=== PATIENT | female | born 1995 | race Caucasian/White ===

== ENCOUNTER 2019-04-14 16:52 | Emergency (ER) | payer BC ==
[~2019-04-14 16:52] MED LIST: BIRTH CONTROL; CIPRO500 MG PO; FLAGYL500 MG PO; LITHIUM CARBON600 MG; NAPROSYN500 MG PO; NOHOMEMEDICATIONS; PHENAZOPYRIDIN200 M2 PO; PROZAC10 MG; SEROQUEL XR150 MG PO; TRINATE TABLET1 TAB; ZOFRAN ODT4 MG PO
== END 2019-04-14 17:52 | disposition left against medical advice (07) ==
LOC: M.ERS 16:52
DX: Z53.21 Procedure and treatment not carried out due to patient leaving prior to being seen by health care provider (principal)

== ENCOUNTER 2019-10-07 12:22 | Emergency (ER) | payer BC ==
[~2019-10-07] VITALS: Ht 175.3 cm; Wt 59.0 kg
[2019-10-07] MEDS ORDERED: TYLENOL WITH CO1 TA1 PO (14:28)
[2019-10-07] MEDS ORDERED: DOXYCYCLINE 10100 MG PO (14:28)
[2019-10-07] MEDS ORDERED: ZANAFLEX4 MG PO (14:28)
[2019-10-07] MEDS ORDERED: IBUPROFEN 800800 M1 PO (14:28)
[2019-10-07 15:04] VITALS: BP 103/60
== END 2019-10-07 15:04 | disposition home or self-care (01) ==
LOC: M.ERS 12:22
DX: S06.0X0A Concussion without loss of consciousness, initial encounter (principal); S16.1XXA Strain of muscle, fascia and tendon at neck level, initial encounter; S91.302A Unspecified open wound, left foot, initial encounter; S50.02XA Contusion of left elbow, initial encounter; S40.211A Abrasion of right shoulder, initial encounter; F17.210 Nicotine dependence, cigarettes, uncomplicated; Y08.89XA Assault by other specified means, initial encounter; Y93.89 Activity, other specified; Y92.89 Other specified places as the place of occurrence of the external cause; Y99.8 Other external cause status